=== PATIENT | female | born 1965 | race African-American/Black ===

== ENCOUNTER → 2017-04-14 | Outpatient (CLI) | payer OTHER | LOC: HPND 12:44 | PROVIDERS: ATTEND Obstetrics & Gynecology | DX: O09.522 Supervision of elderly multigravida, second trimester (principal); O09.292 Supervision of pregnancy with other poor reproductive or obstetric history, second trimester; O09.812 Supervision of pregnancy resulting from assisted reproductive technology, second trimester; O34.32 Maternal care for cervical incompetence, second trimester; O10.912 Unspecified pre-existing hypertension complicating pregnancy, second trimester; O26.872 Cervical shortening, second trimester | CPT/HCPCS: 76811; 76817 ==

== ENCOUNTER → 2017-04-28 | Outpatient (CLI) | payer OTHER | LOC: HPND 13:07 | PROVIDERS: ATTEND Obstetrics & Gynecology | DX: O09.812 Supervision of pregnancy resulting from assisted reproductive technology, second trimester (principal); O10.912 Unspecified pre-existing hypertension complicating pregnancy, second trimester; O09.522 Supervision of elderly multigravida, second trimester; O26.872 Cervical shortening, second trimester | CPT/HCPCS: 76815; 76817 ==

== ENCOUNTER → 2017-05-12 | Outpatient (CLI) | payer OTHER | LOC: HPND 13:13 | PROVIDERS: ATTEND Obstetrics & Gynecology | DX: O09.812 Supervision of pregnancy resulting from assisted reproductive technology, second trimester (principal); O10.912 Unspecified pre-existing hypertension complicating pregnancy, second trimester; O26.872 Cervical shortening, second trimester; O09.522 Supervision of elderly multigravida, second trimester | CPT/HCPCS: 76816; 76817; 76825; 76827; 93325 ==

== ENCOUNTER → 2017-05-26 | Outpatient (CLI) | payer OTHER | LOC: HPND 13:21 | PROVIDERS: ATTEND Obstetrics & Gynecology | DX: O09.812 Supervision of pregnancy resulting from assisted reproductive technology, second trimester (principal); O09.522 Supervision of elderly multigravida, second trimester; O10.912 Unspecified pre-existing hypertension complicating pregnancy, second trimester; O26.872 Cervical shortening, second trimester; O99.282 Endocrine, nutritional and metabolic diseases complicating pregnancy, second trimester; O10.012 Pre-existing essential hypertension complicating pregnancy, second trimester; O13.2 Gestational [pregnancy-induced] hypertension without significant proteinuria, second trimester | CPT/HCPCS: 76815; 76817 ==

== ENCOUNTER → 2017-06-09 | Outpatient (CLI) | payer OTHER | LOC: HPND 13:21 | PROVIDERS: ATTEND Obstetrics & Gynecology | DX: O09.812 Supervision of pregnancy resulting from assisted reproductive technology, second trimester (principal); O09.522 Supervision of elderly multigravida, second trimester; O10.912 Unspecified pre-existing hypertension complicating pregnancy, second trimester; O26.872 Cervical shortening, second trimester | CPT/HCPCS: 76816; 76817 ==

== ENCOUNTER → 2017-07-08 | Outpatient (CLI) | payer OTHER | LOC: HPND 07:50 | PROVIDERS: ATTEND Obstetrics & Gynecology | DX: O09.522 Supervision of elderly multigravida, second trimester (principal); O09.812 Supervision of pregnancy resulting from assisted reproductive technology, second trimester; O10.912 Unspecified pre-existing hypertension complicating pregnancy, second trimester; O99.282 Endocrine, nutritional and metabolic diseases complicating pregnancy, second trimester | CPT/HCPCS: 76816 ==

== ENCOUNTER 2017-08-13 11:56 | Inpatient (IN) | payer OTHER ==
[2017-08-13] VITALS (52 sets, daily range): BP systolic 147–213; BP diastolic 39–110; PULSE 58–85; RESP 20; TEMP 97.9–98
[~2017-08-13] VITALS: Ht 160 cm; Wt 80.7 kg
[2017-08-13] MEDS ORDERED: ONDANSETRON ODT 4 MG TAB PO PRN (13:00)
[2017-08-13] MEDS ORDERED: SODIUM CHLORIDE 0.9% FLUSH 10 ML FLUSH IV FLUSH PRN (13:00)
[2017-08-13] MEDS: METHYLDOPA 500 MG TAB PO SCH ×2 (14:00→22:05)
--- NOTE | 2017-08-13 14:22 | MH ---
cc: Wali Lal MD DATE OF ADMISSION: 08/13/2017 REASON FOR ADMISSION: 1. 34 weeks. 2. Worsening chronic hypertension, possible preeclampsia. 3. Advanced maternal age. 4. Status post myomectomy. 5. Status post cerclage. 6. Hypothyroid. HISTORY OF PRESENT ILLNESS: A 51-year-old -[place]ovenian female, para 0-1-0-0, LMP of 12/18/2016, EDC of 09/24/2017, by donor egg. Patient with known chronic hypertension. History of heart failure after loss of twins mid-trimester. She has had BPP today with score of 8/10. Blood pressure elevated 164/97, and the [employer] business consultant recommended proceed with admission and evaluation for possible preeclampsia and delivery if indicated. Patient has had congestion but denies headache, abdominal pain, or any persistent visual changes. PAST MEDICAL HISTORY: 1. 1968 bilateral inguinal hernia repair . 2. 1982 3rd molars. 3. 2012 robotic myomectomy x 4. 4. Cerclage 03/2017. ALLERGIES: ONLY TO FEATHERS, LATEX AND DUST. MEDICATIONS: Include labetalol 400 mg p.o. t.i.d., Aldomet 500 mg p.o. t.i.d., Synthroid 50 mcg daily. TRANSFUSIONS: None. SERIOUS MEDICAL ILLNESS: Had hypertension IN 1984, developed heart failure post-twin loss at 22 weeks in 2013. SOCIAL HISTORY: She is . She is a physician. 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 PHYSICAL EXAMINATION: This is a gravid -Slovenian female. HEENT: Shows some mild edema. HEART: Regular rate. CHEST: Clear. BREASTS: . ABDOMEN: Gravid. EFW is 2000 g. EXTREMITIES: 2+ edema. Reflexes full and equal. ASSESSMENT: As above, she is now admitted for evaluation and possible delivery. Will give steroids and monitor and reviewed the parameters for delivery with her. MD SARWAT Vasquez/MERLENE , 01:16 PM , 01:46 PM [facility]ITAL[facility]
[2017-08-13] MEDS ORDERED: MAGNESIUM SULFATE INJ 2 GM in SODIUM CHLORIDE 0.9% INJ 100 ML IV ONE (15:15)
[2017-08-13] MEDS ORDERED: hydrALAZINE HCL 20 MG/ML VIAL IV PUSH ONE (15:15)
[2017-08-13 15:34] LABS: BASOPHIL % 0.4 % (0.0-2.0); EOSINOPHIL # 0.4 TH/MM3 (0-0.4); EOSINOPHIL % 3.7 % (0.0-4.0); HEMATOCRIT 36.9 % (35.0-46.0); HEMOGLOBIN 12.8 GM/DL (11.6-15.3); LYMPH % 12.1 % (9.0-44.0); LYMPHOCYTE # 1.2 TH/MM3 (1.0-4.8); MEAN CELL VOLUME 88.1 FL (80.0-100.0); MEAN CORPUSCULAR HEMOGLOBIN 30.5 PG (27.0-34.0); MEAN CORPUSCULAR HGB CONC 34.6 % (32.0-36.0); MONO % 11.2 % (0.0-8.0); MONOCYTE # 1.1 TH/MM3 (0-0.9); NEUT % 72.6 % (16.0-70.0); PLATELET COUNT 212 TH/MM3 (150-450); RED BLOOD COUNT 4.18 MIL/MM3 (4.00-5.30); RED CELL DISTRIBUTION WIDTH 13.7 % (11.6-17.2); WHITE BLOOD COUNT 9.6 TH/MM3 (4.0-11.0)
[2017-08-13] MEDS ORDERED: MAGNESIUM SULFATE 40 GM PREMIX 1,000 ML IV SCH (16:00)
[2017-08-13] MEDS ORDERED: BETAMETHASONE SOD PHOS/ACETATE SUSP 30 MG/5 ML VIAL IM SCH (16:00)
[2017-08-13 16:10] LABS: ALBUMIN 2.9 GM/DL (3.4-5.0); BICARBONATE 24.2 MEQ/L (21.0-32.0); CALCIUM 9.5 MG/DL (8.5-10.1); CREATININE 0.5 MG/DL (0.50-1.00); DIRECT BILIRUBIN ADULT 0.1 MG/DL (0.0-0.2)
[2017-08-13 16:12] LABS: INDIRECT BILIRUBIN 0.4 MG/DL (0.0-0.8); TOTAL BILIRUBIN ADULT 0.5 MG/DL (0.2-1.0); TOTAL PROTEIN 6.5 GM/DL (6.4-8.2)
[2017-08-13 17:12] LABS: BACTERIA, URINE OCC /hpf; BILIRUBIN, URINE NEG (NEG); BLOOD, URINE NEG (NEG); GLUCOSE,URINE NEG (NEG); KETONE, URINE TRACE mg/dL (NEG); NITRITE,URINE NEG (NEG); SQUAMOUS EPITHELIAL CELL URINE 5 /hpf (0-5); URINE COLOR YELLOW (YELLW/STRAW); URINE LEUKOCYTE ESTERASE NEG (NEG)
[2017-08-13] MEDS ORDERED: LABETALOL HCL 200 MG TAB PO SCH (18:00)
[2017-08-13] MEDS ORDERED: ACETAMINOPHEN 1000 MG/100 ML 100 ML IV ONE (18:00)
--- NOTE | 2017-08-13 18:59 | MH ---
cc: Wali Lal MD DATE OF ADMISSION: 08/13/2017 The patient is now on IV fluids, IV magnesium after consultation with a rn postpartum and IV hydralazine. The plan would be to try to stabilize her pressure and if she remains stable, we will repeat the steroid dose at 12 hours post first dose and proceed with delivery in the morning. Should she have signs of worsening hypertension or preeclampsia, recommend deliver right away. She has a mild headache now she feels due to being tearful. We will give her some IV Tylenol and keep her n.p.o. except for clear liquids. I have requested anesthesia evaluation to prepare for delivery. I explained to both the patient and her the severe nature of her hypertension, the risk of prematurity being small versus the risk of maternal loss by maintaining the . I have conferred with Dr. Vernon today and her rn postpartum and have the written reports from Dr. Ng today which I have shared with her. They understand and agree. MD SARWAT Vasquez/LUH , 05:29 PM , 06:58 PM
[2017-08-13] MEDS ORDERED: ZOLPIDEM TARTRATE 5 MG TAB PO PRN (21:00)
[2017-08-13] MEDS: hydrALAZINE HCL 20 MG/ML VIAL IV PUSH SCH (21:09)
[2017-08-13] MEDS: SODIUM CHLORIDE 0.9% FLUSH 10 ML FLUSH IV FLUSH SCH (21:12)
[2017-08-14] VITALS (21 sets, daily range): BP systolic 94–152; BP diastolic 50–90; PULSE 71–86; RESP 16–27; TEMP 97–98.4; O2SAT 95–98
[2017-08-14] MEDS ORDERED: LACTATED RINGER'S 1000 ML INJ 1,000 ML IV SCH ×3 (00:01→13:04)
[2017-08-14] MEDS: LABETALOL HCL 200 MG TAB PO SCH ×2 (00:28→09:00)
[2017-08-14] MEDS: hydrALAZINE HCL 20 MG/ML VIAL IV PUSH SCH ×3 (03:10→15:00)
[2017-08-14] MEDS ORDERED: BETAMETHASONE SOD PHOS/ACETATE SUSP 30 MG/5 ML VIAL IM SCH (04:00)
[2017-08-14 05:49] LABS: AUTOMATED NEUTROPHIL # 11.2 TH/MM3 (1.8-7.7); BASOPHIL % 0.1 % (0.0-2.0); EOSINOPHIL % 0.1 % (0.0-4.0); HEMATOCRIT 35.5 % (35.0-46.0); HEMOGLOBIN 12.2 GM/DL (11.6-15.3); LYMPH % 5.5 % (9.0-44.0); LYMPHOCYTE # 0.7 TH/MM3 (1.0-4.8); MEAN CELL VOLUME 88.5 FL (80.0-100.0); MEAN CORPUSCULAR HEMOGLOBIN 30.5 PG (27.0-34.0); MEAN CORPUSCULAR HGB CONC 34.5 % (32.0-36.0); MEAN PLATELET VOLUME 9.1 FL (7.0-11.0); MONO % 2.4 % (0.0-8.0); MONOCYTE # 0.3 TH/MM3 (0-0.9); NEUT % 91.9 % (16.0-70.0); PLATELET COUNT 210 TH/MM3 (150-450); RED BLOOD COUNT 4.01 MIL/MM3 (4.00-5.30); RED CELL DISTRIBUTION WIDTH 13.9 % (11.6-17.2); WHITE BLOOD COUNT 12.2 TH/MM3 (4.0-11.0)
[2017-08-14] MEDS ORDERED: CITRIC ACID-SODIUM CITRATE LIQ 30 ML UDC PO SCH (06:00)
[2017-08-14] MEDS: METHYLDOPA 500 MG TAB PO SCH ×2 (06:00→14:00)
[2017-08-14] MEDS ORDERED: LACTATED RINGER'S 1000 ML IV ONE (06:00)
[2017-08-14] MEDS ORDERED: LACTATED RINGER'S 1000 ML IV SCH (06:00)
[2017-08-14] MEDS ORDERED: ceFAZolin 2 GM PREMIX 50 ML IV SCH (06:00)
[2017-08-14] MEDS ORDERED: OXYTOCIN 30 UNITS-500ML PREMIX 500 ML IV ONE (08:00)
[2017-08-14] MEDS ORDERED: DOCUSATE SODIUM 50 MG/SENNA 8.6 MG TAB PO PRN (08:00)
[2017-08-14] MEDS ORDERED: IBUPROFEN 600 MG TAB PO PRN (08:00)
[2017-08-14] MEDS ORDERED: ZOLPIDEM TARTRATE 5 MG TAB PO PRN (08:00)
[2017-08-14] MEDS ORDERED: oxyCODONE/ACETAMINOPHEN 5 MG/325 MG TAB PO PRN ×2 (08:00)
[2017-08-14] MEDS ORDERED: MEASLES, MUMPS, RUBELLA VACCINE 0.5 ML VIAL SQ ONE (08:00)
[2017-08-14] MEDS ORDERED: KETOROLAC TROMETHAMINE 30 MG/ML (IVP) VIAL IV PUSH PRN (08:00)
[2017-08-14] MEDS ORDERED: KETOROLAC TROMETHAMINE 60 MG/2 ML (IM) VIAL IM PRN (08:00)
[2017-08-14] MEDS ORDERED: ONDANSETRON HCL 4 MG/2 ML VIAL IVP PRN (08:00)
[2017-08-14] MEDS: ACETAMINOPHEN 1000 MG/100 ML VIAL IV SCH ×2 (08:00→16:00)
[2017-08-14] MEDS ORDERED: MORPHINE SULFATE PF 5 MG/10 ML VIAL ONE (08:01)
[2017-08-14] MEDS ORDERED: ACETAMINOPHEN 1000 MG/100 ML 100 ML IV ONE (08:01)
[2017-08-14] MEDS: MULTIVIT/MIN/PREN/FOL AC/IRON PRENATAL TAB PO SCH (09:00)
[2017-08-14] MEDS: SODIUM CHLORIDE 0.9% FLUSH 10 ML FLUSH IV FLUSH SCH ×2 (09:00→21:45)
[2017-08-14] MEDS ORDERED: MAGNESIUM SULFATE 40 GM PREMIX 1,000 ML IV SCH (09:09)
[2017-08-14] MEDS ORDERED: hydrALAZINE HCL 20 MG/ML VIAL IV PUSH PRN ×2 (09:15→13:30)
[2017-08-14] MEDS ORDERED: SODIUM CHLORIDE 0.9% FLUSH 10 ML FLUSH IV FLUSH PRN (09:15)
[2017-08-14] MEDS ORDERED: CALCIUM GLUCONATE 10% 1 GM/10 ML VIAL IV PUSH PRN (09:15)
[2017-08-14] MEDS ORDERED: LABETALOL HCL 100 MG/20 ML VIAL IV PUSH PRN ×3 (09:15→13:30)
[2017-08-14] MEDS ORDERED: LACTULOSE SYRUP 20 GM/30 ML CUP PO PRN (09:45)
[2017-08-14] MEDS ORDERED: LORazepam 2 MG/ML VIAL IV PUSH PRN (09:45)
[2017-08-14] MEDS ORDERED: RESP: ALBUTEROL 2.5 MG/IPRATROPIUM 0.5 MG NEB (PRN) INH (09:45)
[2017-08-14] MEDS ORDERED: BISACODYL 10 MG SUPP RECTAL PRN (09:45)
[2017-08-14] MEDS ORDERED: SENNOSIDES 8.6 MG TAB PO PRN (09:45)
[2017-08-14] MEDS ORDERED: ONDANSETRON HCL 4 MG/2 ML VIAL IV PUSH PRN (09:45)
[2017-08-14] MEDS ORDERED: MAGNESIUM HYDROXIDE SUSP 30 ML CUP PO PRN (09:45)
[2017-08-14] MEDS ORDERED: ONDANSETRON HCL 4 MG/2 ML VIAL ONE (10:41)
[2017-08-14] MEDS ORDERED: PHENYLEPH/NS 1000 MCG/10 ML SYR IV ONE (12:00)
[2017-08-14] MEDS ORDERED: DEXAMETHASONE SOD PHOS 4 MG/ML VIAL IV ONE (12:00)
[2017-08-14] MEDS ORDERED: LACTATED RINGER'S 1000 ML INJ 1,000 ML IV ONE (12:00)
[2017-08-14] MEDS ORDERED: ONDANSETRON HCL 4 MG/2 ML VIAL IV ONE (12:00)
[2017-08-14] MEDS ORDERED: ePHEDrine/NS 25 MG/5 ML SYRINGE IV ONE (12:00)
[2017-08-14] MEDS ORDERED: PROCHLORPERAZINE INJ 10 MG/2 ML VIAL IV ONE (12:00)
[2017-08-14] MEDS ORDERED: OXYTOCIN 10 UNIT/ML AMP IV ONE (12:00)
[2017-08-14] MEDS ORDERED: EPIDURAL-DIPHENHYDRAMINE HCL 50 MG CAP PO PRN (12:30)
[2017-08-14] MEDS ORDERED: EPIDURAL-DIPHENHYDRAMINE HCL 50 MG/ML VIAL IV PUSH PRN (12:30)
[2017-08-14] MEDS ORDERED: EPIDURAL-DO NOT ADMINISTER ANTICOAGULANTS PRN (12:30)
[2017-08-14] MEDS ORDERED: EPIDURAL-NO SYSTEMIC NARCOTICS PRN (12:30)
[2017-08-14] MEDS ORDERED: MORPHINE SULFATE PF 5 MG/10 ML VIAL EPIDURAL ONE (12:30)
[2017-08-14] MEDS ORDERED: EPIDURAL-NALOXONE HCL 0.4 MG/ML AMP IV PUSH PRN (12:30)
--- NOTE | 2017-08-14 13:03 | PD.CONS ---
[facility] Critical Care Medicine Consult Requested By Wali Lal M.D. Reason for Consult Pre-eclampsia Primary Care Physician No Primary Care Physician History of Present Illness 51 y/o woman with pre-eclampsia delivered healthy child by earlier today and is transferred to the [facility] for management of hypertension. By history she developed pulmonary edema after a previous and required hospitalization. I met her on her arrival to the [facility] and spoke with the patient and her . Magnesium level is > 6, rhythm is sinus, SBP 140s. She is on combination PO labetalol, hydralazine, and aldomet, with supplemental hydralazine and labetalol iv. She complains of SOB on arrival but there appears to be a large anxiety component. She is presently moving air well without obstruction, stridor, or wheezing. Pulse ox sats 98%.Oxytocin is infusing and urine has mild hematuria. Review of Systems Ears, nose, mouth, throat: DENIES: Tinnitus, Hearing loss, Vertigo, Nasal discharge, Oral lesions, Throat pain, Hoarseness, Ear Pain, Running Nose, Epistaxis, Sinus Pain, Toothache, Odynophagia Respiratory: COMPLAINS OF: Shortness of breath Cardiovascular: COMPLAINS OF: Chest pain, Palpitations Genitourinary: COMPLAINS OF: Hematuria Musculoskeletal: COMPLAINS OF: Muscle aches Integumentary: DENIES: Abnormal pigmentation, Pruritus, Rash, Nail changes, Breast masses, Breast skin changes, Nipple discharge Hematologic/lymphatic: DENIES: Bruising, Lymphadenopathy Immunologic/allergic: DENIES: Eczema, Urticaria Neurologic: DENIES: Abnormal gait, Headache, Localized weakness, Paresthesias, Seizures, Speech Problems, Tremor, Poor Balance Psychiatric: COMPLAINS OF: Anxiety Past Family Social History Allergies: Coded Allergies: No Known Allergies (Verified Allergy, Unknown, 08/13/17) Past Medical History Heart failure/fluid overload after prior Physical Exam Vital Signs Vital Signs Date Time Temp Pulse Resp B/P (MAP) Pulse Ox O2 Delivery O2 Flow Rate FiO2 08/14/17 10:45 75 18 95 08/14/17 10:45 133/56 (81) 08/14/17 10:08 107/58 (74) 08/14/17 10:08 71 18 95 08/14/17 09:45 74 16 107/56 (73) 08/14/17 09:39 74 16 08/14/17 09:36 97 08/14/17 09:30 94/50 (65) 08/14/17 09:15 97.5 97 08/14/17 09:15 83 16 94/51 (65) 08/14/17 07:59 18 08/14/17 07:00 86 131/65 (87) 08/14/17 06:00 85 127/60 (82) 08/14/17 05:00 81 123/63 (83) 08/14/17 04:00 81 133/70 (91) 08/14/17 03:00 97.8 18 08/14/17 03:00 72 132/76 (94) 08/14/17 02:00 77 142/74 (96) 08/14/17 01:00 78 142/78 (99) 08/14/17 00:00 98.0 08/14/17 00:00 20 08/14/17 00:00 80 150/76 (100) 08/13/17 23:00 80 147/80 (102) 08/13/17 22:00 85 149/81 (103) 08/13/17 21:18 76 149/83 (105) 08/13/17 21:07 75 156/88 (110) 08/13/17 19:30 20 08/13/17 19:26 80 164/81 (108) 08/13/17 19:20 98.0 08/13/17 19:20 20 08/13/17 18:29 20 08/13/17 18:12 72 167/92 (117) 08/13/17 17:07 70 159/88 (111) 08/13/17 16:53 69 177/89 (118) 08/13/17 16:51 75 193/39 (90) 08/13/17 16:41 70 08/13/17 16:36 70 08/13/17 16:33 68 176/93 (120) 08/13/17 16:31 67 08/13/17 16:26 67 08/13/17 16:20 67 08/13/17 16:18 64 169/98 (121) 08/13/17 16:15 64 08/13/17 16:10 68 08/13/17 16:05 62 08/13/17 16:00 68 08/13/17 15:59 68 08/13/17 15:54 68 08/13/17 15:49 68 08/13/17 15:48 65 183/93 (123) 08/13/17 15:44 64 08/13/17 15:39 67 08/13/17 15:34 71 08/13/17 15:32 68 195/110 (138) 08/13/17 15:28 61 08/13/17 15:23 59 08/13/17 15:18 61 08/13/17 15:18 60 187/105 (132) 08/13/17 15:13 74 08/13/17 15:03 58 185/97 (126) 08/13/17 15:02 59 08/13/17 14:59 62 08/13/17 14:54 63 08/13/17 14:49 70 08/13/17 14:47 67 189/98 (128) 08/13/17 14:47 67 08/13/17 14:43 63 08/13/17 14:38 63 08/13/17 14:33 97.9 08/13/17 14:32 64 186/96 (126) 08/13/17 14:32 62 08/13/17 14:31 70 213/108 (143) 08/13/17 14:31 20 08/13/17 14:31 63 08/13/17 14:27 60 08/13/17 14:22 63 08/13/17 14:17 64 08/13/17 14:12 60 08/13/17 14:11 59 189/95 (126) 08/13/17 14:00 20 08/13/17 13:58 68 203/98 (133) Physical Exam Gen: Anxious, nauseated. Head: Normal, atraumatic. Neck: Supple, airway widely patent. Lungs: Clear, no wheezes or crackles. Heart: NL S1S2, 3/6 holosystolic murmur LSB. No JVD. Abdomen: Post delivery, recently gravid uterus, easily palpable mid abdomen, firm. No peritoneal irritation. Extremities: Warm, well perfused. Trace edema lowers. Neuro: O X 3, alert, conversant. Speech clear. Moves 4 limbs with 5/5 strength. Laboratory Laboratory Tests Test 08/13/17 15:00 08/13/17 16:10 08/13/17 21:54 08/14/17 04:59 White Blood Count 9.6 12.2 Red Blood Count 4.18 4.01 Hemoglobin 12.8 12.2 Hematocrit 36.9 35.5 Mean Corpuscular Volume 88.1 88.5 Mean Corpuscular Hemoglobin 30.5 30.5 Mean Corpuscular Hemoglobin Concent 34.6 34.5 Red Cell Distribution Width 13.7 13.9 Platelet Count 212 210 Mean Platelet Volume 9.0 9.1 Neutrophils (%) (Auto) 72.6 91.9 Lymphocytes (%) (Auto) 12.1 5.5 Monocytes (%) (Auto) 11.2 2.4 Eosinophils (%) (Auto) 3.7 0.1 Basophils (%) (Auto) 0.4 0.1 Neutrophils # (Auto) 7.0 11.2 Lymphocytes # (Auto) 1.2 0.7 Monocytes # (Auto) 1.1 0.3 Eosinophils # (Auto) 0.4 0.0 Basophils # (Auto) 0.0 0.0 CBC Comment DIFF FINAL DIFF FINAL Differential Comment Blood Urea Nitrogen 12 Creatinine 0.50 Random Glucose 73 Total Protein 6.5 Albumin 2.9 Calcium Level 9.5 Alkaline Phosphatase 138 Aspartate Amino Transf (AST/SGOT) 34 Alanine Aminotransferase (ALT/SGPT) 38 Total Bilirubin 0.5 Direct Bilirubin 0.1 Sodium Level 138 Potassium Level 3.9 Chloride Level 105 Carbon Dioxide Level 24.2 Anion Gap 9 Estimat Glomerular Filtration Rate 158 Indirect Bilirubin 0.4 Urine Color YELLOW Urine Turbidity CLEAR Urine pH 7.0 Urine Specific Alexander 1.010 Urine Protein NEG Urine Glucose (UA) NEG Urine Ketones TRACE Urine Occult Blood NEG Urine Nitrite NEG Urine Bilirubin NEG Urine Urobilinogen LESS THAN 2.0 Urine Leukocyte Esterase NEG Urine WBC LESS THAN 1 Urine Squamous Epithelial Cells 5 Urine Bacteria OCC Microscopic Urinalysis Comment CULT NOT INDICATED Magnesium Level 4.7 6.2 Result Diagram: 08/14/17 0459 08/13/17 1500 Assessment and Plan Problem List: (1) Pre-eclampsia added to pre-existing hypertension ICD Code: O11.9 - Pre-existing hypertension with pre-eclampsia, unspecified trimester Status: Acute Assessment and Plan Plan: 1. Continue aldomet and labetalol PO. 2. Labetalol 20 mg IV q2h prn SBP > 150. 3. Hydralazine 10 mg iv q1h prn SBP > 140. 4. IV at 75/hr, isotonic crystalloid. 5. Pepcid. 6. Chemical DVT px when OK with OB service 7. Zofran prn nausea. 8. Magnesium gtt infusion. 9. Serial BMP, mag, phos. 10. Watch for respiratory depression or muscle weakness. Overall impression: Patient critically ill with pre-eclampsia complicating . History of pulmonary edema during prior heightens concerns at this time. Although presently complaining of SOB and respiratory difficulty she is moving good air bilaterally and actually breathing with reasonable comfort. Magnesium level is acceptable at around 6 and no seizures. Critical care 38 mins Ricardo Colon MD Aug 14, 2017 13:03
--- NOTE | 2017-08-14 13:47 | MP ---
cc: Wali Lal MD DATE OF OPERATION: 08/14/2017 DATE OF SURGERY: 08/14/2017 PREOPERATIVE DIAGNOSES: 1. at 34 weeks. 2. Advanced maternal age. 3. Chronic hypertension with superimposed severe preeclampsia, previous myomectomy, incompetent cervix. POSTOPERATIVE DIAGNOSES: 1. at 34 weeks. 2. Advanced maternal age. 3. Chronic hypertension with superimposed severe preeclampsia, previous myomectomy, incompetent cervix., multiple fibroids. PROCEDURE PERFORMED: Removal of cerclage and a primary low transverse section. ANESTHESIA: SPINAL SURGEON: Wali Lal MD ABORIGINAL EDUCATION TEACHER: Martha Weiss. ESTIMATED BLOOD LOSS: 700 mL. FLUIDS: 700 mL. DESCRIPTION OF PROCEDURE: Following induction of adequate spinal anesthesia, the patient was positioned in the dorsal lithotomy position with 2 assistants holding her legs. The Zaidi catheter was placed. The cervix was exposed with a weighed speculum and a hand-held retractor. The single Prolene stitch was grasped with a ring forceps, cut and removed intact. The vaginal exam revealed no residual suture. The patient was now repositioned and prepped and draped supine on the operating table, left lateral position using sterile fashion, the abdomen was opened through a Pfannenstiel incision using a knife to cut down through the skin to the fascia, the fascia opened transversely, stripped from the muscles. The rectus muscles split in the midline and the peritoneum opened sharply without incident. The bladder flaps taken down sharply, retracting the field with the Megan blade. The lower segment was developed enough for a low transverse incision going just below a 4 cm anterior fibroid. The membranes were ruptured for clear fluid. Excision extended bluntly and the baby delivered with roll forming machine set up operator guidance, fundal pressure. A live vigorous male, Apgars 6 and 9, weight 4 pounds 6 ounces. Cord was sent for typing, placenta for pathology and uterine cavity wiped cleaned with laps. Uterus exteriorized and closed in 2 layers of running suture, first with a running locking stitch of Vicryl, second with a running imbricating stitch of Vicryl. The posterior inspection revealed 1 adhesion of the sigmoid mesentery to the posterior fundus. This was lysed sharply without incident. Tubes and ovaries normal. The uterus had multiple subserosal fibroids 2-3 cm. There was no bleeding. The uterus was placed back in the cavity, irrigation performed, no bleeding was evident. The bladder flap was closed with a running stitch of 3-0 Vicryl. All laps and retractors removed. The counts were corrects. The anterior peritoneum closed with a running stitch of 2-0 Vicryl, the fascia was running locking stitch of 0 Vicryl, corner midline tied, subcu with running 3-0 Vicryl and the skin with running subcuticular 3-0 Monocryl. Dermabond applied. All counts correct and the patient was awakened and taken to the recovery room in good condition. MD SARWAT Vasquez/LUH , 09:18 AM , 01:46 PM TAB
[2017-08-14] MEDS ORDERED: METHYLDOPA 500 MG TAB PO SCH (14:00)
[2017-08-14] MEDS ORDERED: LABETALOL HCL 300 MG TAB PO SCH (14:00)
[2017-08-14] MEDS ORDERED: POTASSIUM CHLOR 20 MEQ PREMIX 100 ML IV ONE (15:45)
[2017-08-14] MEDS ORDERED: FUROSEMIDE 40 MG/4 ML VIAL IV PUSH ONE ×2 (15:45→18:15)
[2017-08-14] MEDS ORDERED: OXYTOCIN 30 UNITS-500ML PREMIX 500 ML IV PRN (18:15)
[2017-08-14] MEDS: DOCUSATE SODIUM 50 MG/SENNA 8.6 MG TAB PO SCH (21:44)
[2017-08-14] MEDS: FAMOTIDINE 20 MG/2 ML VIAL IV PUSH SCH (21:44)
[2017-08-15] VITALS (9 sets, daily range): BP systolic 111–149; BP diastolic 58–88; PULSE 68–83; RESP 14–25; TEMP 97.8–98.9; O2SAT 94–100
[2017-08-15 04:18] LABS: AUTOMATED NEUTROPHIL # 14.9 TH/MM3 (1.8-7.7); BASOPHIL % 0.1 % (0.0-2.0); HEMATOCRIT 32.3 % (35.0-46.0); HEMOGLOBIN 11.2 GM/DL (11.6-15.3); LYMPH % 3.3 % (9.0-44.0); LYMPHOCYTE # 0.6 TH/MM3 (1.0-4.8); MEAN CELL VOLUME 88.4 FL (80.0-100.0); MEAN CORPUSCULAR HEMOGLOBIN 30.5 PG (27.0-34.0); MEAN CORPUSCULAR HGB CONC 34.5 % (32.0-36.0); MEAN PLATELET VOLUME 8.9 FL (7.0-11.0); MONO % 8.4 % (0.0-8.0); MONOCYTE # 1.4 TH/MM3 (0-0.9); NEUT % 88.2 % (16.0-70.0); PLATELET COUNT 223 TH/MM3 (150-450); RED BLOOD COUNT 3.65 MIL/MM3 (4.00-5.30); RED CELL DISTRIBUTION WIDTH 13.8 % (11.6-17.2); WHITE BLOOD COUNT 16.8 TH/MM3 (4.0-11.0)
[2017-08-15 04:39] LABS: BICARBONATE 23.6 MEQ/L (21.0-32.0); CALCIUM 7.6 MG/DL (8.5-10.1); CREATININE 0.7 MG/DL (0.50-1.00)
[2017-08-15] MEDS: LEVOTHYROXINE SODIUM 50 MCG TAB PO SCH (04:57)
[2017-08-15] MEDS: FAMOTIDINE 20 MG/2 ML VIAL IV PUSH SCH (09:00)
[2017-08-15] MEDS: MULTIVIT/MIN/PREN/FOL AC/IRON PRENATAL TAB PO SCH (09:00)
[2017-08-15] MEDS: SODIUM CHLORIDE 0.9% FLUSH 10 ML FLUSH IV FLUSH SCH (09:00)
[2017-08-15] MEDS: DOCUSATE SODIUM 50 MG/SENNA 8.6 MG TAB PO SCH (09:00)
[2017-08-15] MEDS ORDERED: SIMETHICONE 80 MG CHEWABLE TAB PO PRN (11:15)
[2017-08-15] MEDS ORDERED: ONDANSETRON HCL 4 MG/2 ML VIAL IVP PRN (11:15)
[2017-08-15] MEDS ORDERED: DOCUSATE SODIUM 50 MG/SENNA 8.6 MG TAB PO PRN (11:15)
[2017-08-15] MEDS ORDERED: oxyCODONE/ACETAMINOPHEN 5 MG/325 MG TAB PO PRN ×2 (11:15)
[2017-08-15] MEDS ORDERED: KETOROLAC TROMETHAMINE 30 MG/ML (IVP) VIAL IV PUSH PRN (11:15)
[2017-08-15] MEDS ORDERED: ZOLPIDEM TARTRATE 5 MG TAB PO PRN (11:15)
--- NOTE | 2017-08-15 11:17 | HHI.CCPN ---
Subjective Remarks/Hospital Course 51 y/o woman with pre-eclampsia delivered healthy child by earlier today and is transferred to the [facility] for management of hypertension. By history she developed pulmonary edema after a previous and required hospitalization. I met her on her arrival to the [facility] and spoke with the patient and her . Magnesium level is > 6, rhythm is sinus, SBP 140s. She is on combination PO labetalol, hydralazine, and aldomet, with supplemental hydralazine and labetalol iv. She complains of SOB on arrival but there appears to be a large anxiety component. She is presently moving air well without obstruction, stridor, or wheezing. Pulse ox sats 98%.Oxytocin is infusing and urine has mild hematuria. 08/15: Breathing comfortably. No more vomiting. No headache. Objective Vital Signs Date Time Temp Pulse Resp B/P (MAP) Pulse Ox O2 Delivery O2 Flow Rate FiO2 08/15/17 09:07 95 21 08/15/17 08:00 98.7 83 25 128/72 (90) 08/15/17 07:00 Room Air Intake and Output 08/15/17 08/15/17 08/16/17 08:00 16:00 00:00 Intake Total 360 ml Output Total 2100 ml Balance -1740 ml Result Diagram: 08/15/17 0344 08/15/17 0344 Objective Remarks Gen: Calm, comfortable. Head: Normal, atraumatic. Neck: Supple, airway widely patent. Lungs: Clear, no wheezes or crackles. Normal pattern. Heart: NL S1S2, 3/6 systolic murmur LSB -> apex. No JVD. Abdomen: Post delivery. No peritoneal irritation. BS active. Extremities: Warm, well perfused. Trace edema lowers to thighs. Neuro: O X 3, alert, conversant. Speech clear. Moves 4 limbs with 5/5 strength. A/P Problem List: (1) Pre-eclampsia added to pre-existing hypertension ICD Code: O11.9 - Pre-existing hypertension with pre-eclampsia, unspecified trimester Status: Acute Assessment and Plan Plan: 1. Continue aldomet and labetalol PO. 2. Labetalol 20 mg IV q2h prn SBP > 150. 3. Hydralazine 10 mg iv q1h prn SBP > 140. 4. d/c IV at 75/hr, isotonic crystalloid. 5. Pepcid. 6. Chemical DVT px when OK with OB service 7. Zofran prn nausea. 8. Magnesium gtt infusion. 9. Serial BMP, mag, phos. 10. Watch for respiratory depression or muscle weakness. 11. Lasix 40 mg daily for 3 days. 12. Hold IV scheduled hydralazine. Overall impression: Patient with pre-eclampsia complicating . History of pulmonary edema during prior heightens concerns. She is moving good air bilaterally and breathing with reasonable comfort. Ricardo Colon MD Aug 15, 2017 11:17
[2017-08-15] MEDS: ACETAMINOPHEN 1000 MG/100 ML VIAL IV SCH ×2 (11:54→23:12)
[2017-08-15] MEDS ORDERED: MEASLES, MUMPS, RUBELLA VACCINE 0.5 ML VIAL SQ ONE (12:00)
[2017-08-15] MEDS ORDERED: LABETALOL HCL 300 MG TAB PO SCH (12:00)
[2017-08-15] MEDS ORDERED: FUROSEMIDE 40 MG/4 ML VIAL IV PUSH SCH (12:00)
[2017-08-15] MEDS: METHYLDOPA 250 MG TAB PO SCH ×2 (12:27→23:12)
[2017-08-15] MEDS ORDERED: METHYLDOPA 250 MG TAB PO ONE (12:45)
[2017-08-15] MEDS ORDERED: LABETALOL HCL 300 MG TAB PO ONE (12:45)
[2017-08-15] MEDS ORDERED: METHYLDOPA 250 MG TAB PO SCH (20:00)
[2017-08-15] MEDS: LABETALOL HCL 200 MG TAB PO SCH (20:44)
[2017-08-15] MEDS ORDERED: LABETALOL HCL 200 MG TAB PO SCH ×2 (21:00)
[2017-08-16] VITALS (7 sets, daily range): BP systolic 143–171; BP diastolic 80–92; PULSE 70–87; RESP 18–22; TEMP 97.6–98.2; O2SAT 98
[2017-08-16 06:00] LABS: AUTOMATED NEUTROPHIL # 11.5 TH/MM3 (1.8-7.7); BASOPHIL % 0.2 % (0.0-2.0); EOSINOPHIL % 0.1 % (0.0-4.0); HEMATOCRIT 30.2 % (35.0-46.0); HEMOGLOBIN 10.3 GM/DL (11.6-15.3); LYMPH % 7.5 % (9.0-44.0); LYMPHOCYTE # 1.1 TH/MM3 (1.0-4.8); MEAN CELL VOLUME 89.7 FL (80.0-100.0); MEAN CORPUSCULAR HEMOGLOBIN 30.4 PG (27.0-34.0); MEAN CORPUSCULAR HGB CONC 33.9 % (32.0-36.0); MEAN PLATELET VOLUME 8.8 FL (7.0-11.0); MONO % 10.8 % (0.0-8.0); MONOCYTE # 1.5 TH/MM3 (0-0.9); NEUT % 81.4 % (16.0-70.0); PLATELET COUNT 209 TH/MM3 (150-450); RED BLOOD COUNT 3.37 MIL/MM3 (4.00-5.30); RED CELL DISTRIBUTION WIDTH 13.9 % (11.6-17.2); WHITE BLOOD COUNT 14.1 TH/MM3 (4.0-11.0)
[2017-08-16 06:24] LABS: BICARBONATE 25.9 MEQ/L (21.0-32.0); CALCIUM 8.8 MG/DL (8.5-10.1); CREATININE 0.81 MG/DL (0.50-1.00)
[2017-08-16] MEDS: ACETAMINOPHEN 1000 MG/100 ML VIAL IV SCH (06:26)
[2017-08-16] MEDS: LEVOTHYROXINE SODIUM 50 MCG TAB PO SCH (06:27)
[2017-08-16] MEDS: METHYLDOPA 250 MG TAB PO SCH ×3 (06:27→22:00)
[2017-08-16] MEDS ORDERED: DIPHTH/TETANUS/ACEL PERTUSSIS (BOOSTER) 0.5 ML VIAL/PFS IM ONE (09:00)
[2017-08-16] MEDS: MULTIVIT/MIN/PREN/FOL AC/IRON PRENATAL TAB PO SCH (09:40)
[2017-08-16] MEDS: LABETALOL HCL 200 MG TAB PO SCH ×2 (09:41→22:54)
[2017-08-16] MEDS ORDERED: LABETALOL HCL 300 MG TAB PO SCH (14:00)
[2017-08-16] MEDS: LABETALOL HCL 300 MG TAB PO SCH (15:23)
[2017-08-16] MEDS ORDERED: SODIUM CHLORIDE 0.65% NASAL SPRAY 45 ML BTL NASAL PRN (16:00)
[2017-08-16] MEDS ORDERED: FUROSEMIDE 40 MG/4 ML VIAL IV PUSH ONE (16:15)
[2017-08-16] MEDS: MOMETASONE FUROATE NASAL SCH (19:22)
[2017-08-16] MEDS: SODIUM CHLORIDE 0.9% FLUSH 10 ML FLUSH IV FLUSH SCH (19:22)
[2017-08-16] MEDS: IBUPROFEN 600 MG TAB PO PRN (22:54)
[2017-08-17] VITALS (9 sets, daily range): BP systolic 142–184; BP diastolic 77–95; PULSE 70–108; RESP 16–20; TEMP 97.9–98.6; O2SAT 96–98
[2017-08-17] MEDS: METHYLDOPA 250 MG TAB PO SCH ×2 (04:36→16:32)
[2017-08-17] MEDS: LEVOTHYROXINE SODIUM 50 MCG TAB PO SCH (05:52)
[2017-08-17 06:20] LABS: BICARBONATE 27.4 MEQ/L (21.0-32.0); CALCIUM 9.2 MG/DL (8.5-10.1); CREATININE 0.57 MG/DL (0.50-1.00)
[2017-08-17] MEDS ORDERED: DIPHTH/TETANUS/ACEL PERTUSSIS (BOOSTER) 0.5 ML VIAL/PFS IM ONE (09:00)
[2017-08-17] MEDS: MULTIVIT/MIN/PREN/FOL AC/IRON PRENATAL TAB PO SCH (09:16)
[2017-08-17] MEDS: LABETALOL HCL 200 MG TAB PO SCH ×2 (09:17→22:32)
[2017-08-17] MEDS: IBUPROFEN 600 MG TAB PO PRN ×2 (09:17→22:31)
[2017-08-17] MEDS: CETIRIZINE HCL 10 MG TAB PO SCH (10:09)
[2017-08-17] MEDS: SIMETHICONE 80 MG CHEWABLE TAB PO PRN ×2 (10:10→16:32)
[2017-08-17] MEDS: LABETALOL HCL 300 MG TAB PO SCH (14:23)
--- NOTE | 2017-08-17 18:05 | PD.CARD.PN ---
Subjective Subjective Remarks NO COMPLAINTS OF CHEST PAIN OR SOB SOME NASAL CONGESTION REPORTS FEELING SLEEPY WITH METHYLDOPA HTN REMAINS MODERATE TO SEVERE Objective Medications Current Medications Medications (Trade) Dose Ordered Sig/Tracy Route Start Time Stop Time Status Last Admin (Stuartnatal Plus 3 ) 1 tab DAILY PO 08/14/17 09:00 08/17/17 09:16 (Zofran Odt) 4 mg Q6H PRN PO 08/13/17 13:00 (Apresoline Inj) 10 mg Q6H IV PUSH 08/13/17 21:00 Future Hold 08/14/17 15:00 (Mylicon Chew) 80 mg QID PRN PO 08/14/17 08:00 08/17/17 16:32 (Percocet 5-325 Mg) 1 tab Q4H PRN PO 08/14/17 08:00 (Percocet 5-325 Mg) 2 tab Q4H PRN PO 08/14/17 08:00 (Ambien) 5 mg HS PRN PO 08/14/17 08:00 08/14/17 21:44 (NS Flush) 2 ml UNSCH PRN IV FLUSH 08/14/17 09:15 (NS Flush) 2 ml BID IV FLUSH 08/14/17 21:00 08/16/17 19:22 (Calcium Gluconate Inj) 1 gm UNSCH PRN IV PUSH 08/14/17 09:15 (Synthroid) 50 mcg DAILY@0600 PO 08/15/17 06:00 08/17/17 05:52 (Ativan Inj) 2 mg Q15M PRN IV PUSH 08/14/17 09:45 (Zofran Inj) 4 mg Q6H PRN IV PUSH 08/14/17 09:45 (Duoneb Neb) 1 ampule Q4HR NEB PRN INH 08/14/17 09:45 (Milk Of Magnesia Liq) 30 ml Q12H PRN PO 08/14/17 09:45 08/17/17 04:32 (Senokot) 17.2 mg Q12H PRN PO 08/14/17 09:45 08/16/17 19:22 (Dulcolax Supp) 10 mg DAILY PRN RECTAL 08/14/17 09:45 (Lactulose Liq) 30 ml DAILY PRN PO 08/14/17 09:45 (Apresoline Inj) 10 mg Q1H PRN IV PUSH 08/14/17 13:30 Future Hold (Trandate Inj) 20 mg Q3H PRN IV PUSH 08/14/17 13:30 Future Hold (Motrin) 600 mg Q6H PRN PO 08/15/17 11:15 08/17/17 09:17 (Alejandra-Colace) 2 tab Q12H PRN PO 08/15/17 11:15 (Trandate) 400 mg BID PO 08/15/17 21:00 08/17/17 09:17 (Trandate) 300 mg DAILY@1400 PO 08/16/17 14:00 08/17/17 14:23 (Nasonex Jerry Spr) 2 spray DAILY NASAL 08/17/17 16:30 08/16/17 19:22 ([place] Jerry [place]) 2 spray Q4H PRN NASAL 08/16/17 16:00 08/16/17 19:22 (ZyrTEC) 10 mg DAILY PO 08/17/17 09:00 08/19/17 09:00 08/17/17 10:09 (Aldomet) 250 mg Q12H PO 08/17/17 16:00 08/17/17 16:32 (Norvasc) 10 mg DAILY PO 08/18/17 09:00 Vital Signs / I&O Vital Signs Date Time Temp Pulse Resp B/P (MAP) Pulse Ox O2 Delivery O2 Flow Rate FiO2 08/17/17 13:33 82 20 177/91 (119) 96 08/17/17 08:00 70 08/17/17 08:00 18 96 08/17/17 08:00 184/83 (116) 08/17/17 06:00 98.3 88 18 154/81 (105) 08/17/17 04:52 98.6 77 18 159/92 (114) 08/17/17 04:20 98.6 08/17/17 04:20 77 18 159/92 (114) 08/17/17 00:38 98.0 108 18 151/89 (109) 97 08/16/17 22:50 86 18 148/83 (104) 08/16/17 20:00 154/92 (112) 08/16/17 20:00 97.6 87 20 98 Physical Exam NAD ANICTERIC FLAT JVD LUNGS CLEAR RRR, NO MURMURS GALLOPS OR RUBS EXTREMITIES WITH 2+ EDEMA Laboratory Laboratory Tests Test 08/17/17 05:40 Blood Urea Nitrogen 16 MG/DL Creatinine 0.57 MG/DL Random Glucose 94 MG/DL Calcium Level 9.2 MG/DL Sodium Level 140 MEQ/L Potassium Level 3.8 MEQ/L Chloride Level 102 MEQ/L Carbon Dioxide Level 27.4 MEQ/L Anion Gap 11 MEQ/L Estimat Glomerular Filtration Rate 136 ML/MIN Assessment and Plan Problem List: (1) Pre-eclampsia added to pre-existing hypertension ICD Codes: O11.9 - Pre-existing hypertension with pre-eclampsia, unspecified trimester Status: Chronic Plan: DECREASE METHYLDOPA 250 MG BID ADD AMLODIPINE 10 MG QD CONTINUE LABETALOL AT PRESENT DOSE FOR NOW OK TO ALLOW SOME PERMISSIVE HTN, WILL LOWER SLOWLY AVOID REBOUND HTN CONTINUE TO HOLD LASIX FOR NOW, ALLOW HER TO EQUILIBRATE INTRAVASCULAR VOLUME AND 3RD SPACED FLUID. Rommel Parekh MD Aug 17, 2017 18:05
[2017-08-17] MEDS: SODIUM CHLORIDE 0.9% FLUSH 10 ML FLUSH IV FLUSH SCH (20:59)
[2017-08-18 04:00] VITALS: BP 148/90; PULSE 81; RESP 18; TEMP 98.4; O2SAT 96
[2017-08-18] MEDS: IBUPROFEN 600 MG TAB PO PRN ×2 (05:05→13:57)
[2017-08-18] MEDS: METHYLDOPA 250 MG TAB PO SCH (05:05)
[2017-08-18] MEDS: LEVOTHYROXINE SODIUM 50 MCG TAB PO SCH (05:05)
[2017-08-18 08:00] VITALS: BP 168/88; PULSE 73; RESP 18; TEMP 97.8; O2SAT 97
[2017-08-18] MEDS ORDERED: OXYC1TAB63 PO (08:31)
[2017-08-18] MEDS ORDERED: LABE300T PO (08:31)
[2017-08-18] MEDS ORDERED: METH250T PO (08:31)
[2017-08-18] MEDS ORDERED: AMLO10 PO (08:31)
[2017-08-18] MEDS ORDERED: LABE200T2 PO (08:31)
--- NOTE | 2017-08-18 08:31 | HHI.DCPOC ---
Discharge Care Plan Report Symptoms to Your Doctor -Temperature above 100.5 degrees -Redness, of incision or excessive or foul smelling drainage -Unusual pain or calf pain -Increased vaginal bleeding -Painful or difficulty urinating -Feelings of extreme sadness or anxiety after 2 weeks Goals to Promote Your Health * To prevent worsening of your condition and complications * To maintain your health at the optimal level Directions to Meet Your Goals Take your medications as prescribed Follow your dietary instruction Follow activity as directed Ensure plenty of rest for recovery Drink fluids for hydration Keep your appointments as scheduled Take your immunizations and boosters as scheduled If your symptoms worsen call your PCP, if no PCP go to Urgent Care Center or Emergency Room Smoking is Dangerous to Your Health. Avoid second hand smoke Call the 24-hour crisis hotline for domestic abuse at Wali Lal MD Aug 18, 2017 08:31
[2017-08-18] MEDS: CETIRIZINE HCL 10 MG TAB PO SCH (09:03)
[2017-08-18] MEDS: LABETALOL HCL 200 MG TAB PO SCH (09:04)
[2017-08-18] MEDS: MOMETASONE FUROATE NASAL SCH (09:04)
[2017-08-18] MEDS: MULTIVIT/MIN/PREN/FOL AC/IRON PRENATAL TAB PO SCH (09:04)
--- NOTE | 2017-08-18 09:16 | MD ---
cc: Wali Lal MD DATE OF DISCHARGE: 08/18/2017 ADMISSION DIAGNOSES: 1. , 34-weeks. 2. Chronic hypertension with superimposed preeclampsia. 3. Advanced maternal age. 4. Status post myomectomy. 5. Status post cerclage for incompetent cervix. DISCHARGE DIAGNOSES: 1. , 34-weeks. 2. Chronic hypertension with superimposed preeclampsia. 3. Advanced maternal age. 4. Status post myomectomy. 5. Status post cerclage for incompetent cervix. 6. Delivered. PROCEDURE: Primary low transverse section on 08/14/2017. HISTORY OF PRESENT ILLNESS: This is a 51-year-old Afro-[place]onese female para 0-1-0-0 with an LMP of 12/18/2016, EDC of 09/24/2017. occurred with IVF by donor egg. The patient has a history of chronic hypertension dating back to age 26 on medications since at least age 29. She had initial care through Dr. Vernon at the [facility] group in [place] and transferred to care on 04/01/2018. Dr. Vernon had placed a cerclage on 03/25/2017 per a history of incompetent cervix with patient's previous , twins that ended at 22-1/2 weeks 01/2014 with incompetent cervix. At the time of admission, her blood pressure was spiking in the 160-170 range with intermittent headaches and she was admitted for evaluation. ADDITIONAL PAST MEDICAL HISTORY: She had bilateral inguinal hernia repair, one in 1968 and one in 1973. She had third molars in 1982. She had robotic myomectomy in 2012. OB HISTORY: Twin pregnancies delivered at 22-weeks in 01/2014 due to incompetent cervix. Had post-delivery congestive heart failure. ADDITIONAL HISTORY: Nodular goiter maintained on Synthroid 50 mcg daily. ALLERGIES: NONE EXCEPT TO LATEX. TRANSFUSIONS: None. SOCIAL HISTORY: She is . She is a physician. 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 HOSPITAL COURSE: She was admitted. Her blood pressure required IV hydralazine to reduce. Her [facility] consultants, Dr. Vernon and Dr. Ng had both recommended delivery for these elevated pressures. She received steroids x 2, magnesium sulfate on the morning of 08/14/2017, underwent a primary low transverse section with delivery of a viable vigorous male, 's of 6 and 9, weight 4 lbs 6 oz. Post-delivery, magnesium sulfate was continued for 24 more hours and she was maintained in the ICU. She remained stable, was given diuresis with IV Lasix and gradually improved. She was discharged on 08/18/2017. She was seen in consultation by her metallurgical laboratory assistant as well, Dr. Parekh. Her pertinent prescriptions included Percocet 5 one to two p.o. q. 4 h as-needed for pain #60; Norvasc 10 mg daily 30, refill 3; Labetalol 400 mg by mouth twice a day 60, refill 3; Labetalol 300 mg by mouth daily at 1400, #30, refill 3; and Norvasc 10 mg daily #30, refill 3. She will take her Synthroid, her vitamins and OTC Motrin for pain relief. She is to avoid heavy lifting. She will return ROBBY to the hospital if any signs of shortness of breath, recurrent edema, chest pain, etc. She will return to see me in one week in the office. A circumcision will be done prior to discharge when the baby is stable for this. Wali Lal MD JAW/DL , 08:41 AM , 09:14 AM
[2017-08-18 10:00] VITALS: BP 138/86
[2017-08-18 13:38] VITALS: BP 140/82
[2017-08-18] MEDS: LABETALOL HCL 300 MG TAB PO SCH (13:57)
== END 2017-08-18 14:27 | disposition home or self-care (01) | DRG 765 ==
LOC: H2EB 11:56 → INTOOBSV 11:56 → H2EA 13:15 → OBSVTOIN 08-14 09:54 → N03A 08-14 12:00 → H1EA 08-15 13:29
PROVIDERS: ADMIT Obstetrics & Gynecology; ATTEND Obstetrics & Gynecology
PROC: 10D00Z1 Extraction of Products of Conception, Low, Open Approach (ICD-10-PCS; principal; 2017-08-14)
PROC: 0UCC7ZZ Extirpation of Matter from Cervix, Via Natural or Artificial Opening (ICD-10-PCS; 2017-08-14)
DX: O11.4 Pre-existing hypertension with pre-eclampsia, complicating childbirth (principal); O34.33 Maternal care for cervical incompetence, third trimester; O99.284 Endocrine, nutritional and metabolic diseases complicating childbirth; O34.13 Maternal care for benign tumor of corpus uteri, third trimester; R31.9 Hematuria, unspecified; D25.2 Subserosal leiomyoma of uterus; O99.344 Other mental disorders complicating childbirth; E04.9 Nontoxic goiter, unspecified; F41.9 Anxiety disorder, unspecified; Z3A.34 34 weeks gestation of pregnancy; Z91.040 Latex allergy status; Z37.0 Single live birth
CPT/HCPCS: 80048; 80076; 81001; 83735; 84100; 85025; 86900; 86901; 88307; 90715; J0131; J0360; J0690; J0702; J0780; J1100; J1885; J1940; J2274; J2370; J2405; J2590; J3475; J3480; J7120